=== PATIENT | male | born 2000 | race Caucasian/White ===

== ENCOUNTER 2022-09-11 00:23 | Emergency (ER) | payer OTHER ==
[~2022-09-11] VITALS: Ht 175.3 cm; Wt 95.3 kg
--- NOTE | 2022-09-11 00:23 | NUR ---
0019- PT EVALUATED BY DR. OCAMPO ON [facility] 0021- PT TX TO BED #9
[2022-09-11 00:25] VITALS: BP 143/93
[2022-09-11] MEDS ORDERED: NACL 0.9% 1,000 ML IV ONE (00:35)
--- NOTE | 2022-09-11 00:40 | NUR ---
PANKAJ, MOTHER REQUESTING UPDATE. PROVIDED NUMBER OF [phone]. PRIMARY RN MADE AWARE.
--- NOTE | 2022-09-11 01:23 | NUR ---
22 YO M [place] FROM HOME WITH C/C OF ETOH. PT STATES HE HAS NO IDEA WHY HE IS HERE. STATES THE LAST HE REMEMBERS WAS HE WAS DRINKING AND PLAYING VIDEO GAMES THEN WOKE UP AND WAS IN THE ER. PT STATES HE NORMALLY DRINKS ON A DAILY BASIS. [facility] STATED SHE CALLED 911 D/T FINDING PT UNRESPONSIVE WITH SOME FOAM AT THE MOUTH. MOM STATES THIS IS NOT NORMAL FOR PT. PT DENIES PAIN AND NAUSEA. DENIES HX, RX AND ALLERGIES
[2022-09-11 02:28] VITALS: BP 150/83
--- NOTE | 2022-09-11 02:28 | NUR ---
Patient discharged with v/s stable. Written and verbal after care instructions given and explained. Patient verbalized understanding. Ambulatory with steady gait. All questions addressed prior to discharge. Advised to follow up with PMD.
== END 2022-09-11 02:28 | disposition home or self-care (01) ==
LOC: MED 00:23
DX: F10.129 Alcohol abuse with intoxication, unspecified (principal); F41.9 Anxiety disorder, unspecified
CPT/HCPCS: 96360; 99283